=== PATIENT | male | born 1970 | race Caucasian/White ===

== ENCOUNTER → 2025-01-30 15:51 | Outpatient (REF) | payer BC, SELFPAY | LOC: RAD 15:51 | PROVIDERS: ATTENDING PHYSICIAN Family Medicine | DX: R10.9 Unspecified abdominal pain (principal); R19.4 Change in bowel habit | CPT/HCPCS: 74177; Q9967 ==

== ENCOUNTER 2025-04-30 06:30 | Day surgery (SDC) | payer BC, SELFPAY | END 2025-04-30 13:43 | disposition home or self-care (01) | LOC: GI 06:30 | PROVIDERS: ATTENDING PHYSICIAN Specialist | DX: K29.70 Gastritis, unspecified, without bleeding (principal); K31.A11 Gastric intestinal metaplasia without dysplasia, involving the antrum; K22.89 Other specified disease of esophagus; R12 Heartburn; R13.10 Dysphagia, unspecified; R93.3 Abnormal findings on diagnostic imaging of other parts of digestive tract | CPT/HCPCS: 43239; 88305; 88342 ==